=== PATIENT | female | born 1980 | race Caucasian/White ===

== ENCOUNTER 2018-04-08 14:47 | Emergency (ER) | payer OTHER ==
[~2018-04-08] VITALS: Ht 162.6 cm; Wt 69.0 kg
[2018-04-08 16:02] LABS: ABSOLUTE NEUTROPHILS 12.5 thou/uL (1.4-8.2); BASOPHILS 0.3 % (0.0-2.0); EOSINOPHILS 0.4 % (0.0-3.0); HEMATOCRIT 38.2 % (37.0-47.0); HEMOGLOBIN 13.6 gm/dL (12.0-15.0); LYMPHOCYTES 8.2 % (24.0-44.0); MCH 32.6 pg (26.0-34.0); MCHC 35.6 g/dL (28.0-37.0); MCV 91.6 fL (80.0-100.0); MONOCYTES 3.2 % (1.0-8.0); PLATELET COUNT 278 thou/uL (150-400); POLYS 87.9 % (36.0-66.0); RBC 4.17 mil/uL (4.20-5.00); WBC 14.2 thou/uL (4.0-11.0)
[2018-04-08 16:07] LABS: CALCIUM 9.5 mg/dL (8.5-10.1); CREATININE 0.8 mg/dL (0.6-1.0); POTASSIUM 3.8 mmol/L (3.5-5.1)
[2018-04-08 16:13] LABS: ALBUMIN 4.3 g/dL (3.4-5.0); DIRECT BILIRUBIN 0.1 mg/dL (<0.1-0.3); TOTAL BILIRUBIN 0.5 mg/dL (<0.1-1.0); TOTAL PROTEIN 8.5 g/dL (6.4-8.2)
[2018-04-08 16:54] LABS: URINE BILIRUBIN NEGATIVE (Negative); URINE BLOOD 3+ (Negative); URINE CLARITY CLEAR; URINE COLOR YELLOW; URINE GLUCOSE-RANDOM* NEGATIVE (Negative); URINE KETONES NEGATIVE (Negative); URINE NITRITE-REFLEX NEGATIVE (Negative); URINE PROTEIN (DIPSTICK) NEGATIVE (Negative); URINE SPECIFIC GRAVITY <= 1.005 (1.005-1.035); URINE UROBILINOGEN 0.2 E.U./dl (0.2-1.0)
[2018-04-08 16:56] LABS: URINE LEUKOCYTES-REFLEX TRACE (Negative)
[2018-04-08 17:04] LABS: CASTS None Seen /LPF (None Seen); CRYSTALS None Seen /LPF (None Seen); SQUAMOUS 0-3 Few /LPF (0-3); URINE RBC 3-10 Few /HPF (0-2)
[2018-04-08 17:05] LABS: BACTERIA-REFLEX 1-9 Few /HPF (None Seen); URINE WBC-REFLEX 0-5 Rare /HPF (0-5)
[2018-04-08] MEDS ORDERED: TORADOL 10 MG T10 MG PO (17:33)
[2018-04-08] MEDS ORDERED: CYCLOBENZAPRINE10 MG PO (17:33)
[2018-04-08] MEDS ORDERED: NORCO 5-325 TA1 EACH PO (17:33)
[2018-04-08] MEDS ORDERED: SENNA-DOCUSATE1 EACH PO (17:33)
[2018-04-08 18:24] VITALS: BP 121/74
== END 2018-04-08 18:25 | disposition home or self-care (01) ==
LOC: ER 14:47
PROVIDERS: Emergency Medicine
DX: S80.12XA Contusion of left lower leg, initial encounter (principal); S60.229A Contusion of unspecified hand, initial encounter; S20.219A Contusion of unspecified front wall of thorax, initial encounter; V89.0XXA Person injured in unspecified motor-vehicle accident, nontraffic, initial encounter; Y93.89 Activity, other specified; Y92.89 Other specified places as the place of occurrence of the external cause; Y99.8 Other external cause status